=== PATIENT | female | born 1930 | race Caucasian/White ===

== ENCOUNTER → 2016-09-21 | Day surgery (SDC) | payer MEDICARE, OTHER ==
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
[~2016-09-21] VITALS: Ht 152.4 cm; Wt 49.7 kg
[~2016-09-21] MED LIST: ACET650T10 PR; AMOX500T PO; B12-1CHW CHEW; BIOT50005; BIOT50006 PO; CHLORHEXIDINE GLUCONATE 2 % 1 PACK (2 CLOTHS) TOPICAL PRN; CHOL1TAB42 PO; CITRTAB; CITRTAB7 PO; CLAR10CA3 PO; CYAN1KIT IM; DIAZ5 PO; DIAZ5TAB PO; DO NOT ADM ANY ANTICOAGULANT DRUGS PRN; FAMOTIDINE 20 MG/2 ML VIAL ONE; FOLI1TAB6 PO; INSULIN HUMAN REGULAR 1,000 UNITS/10 ML VIAL SQ PRN; LACTATED RINGER'S 1000 ML IV PRN; LIDOCAINE HCL 2% 50 ML VIAL ONE; LORA10TA7 PO; MECL-62 PO; MECL1TAB42 PO; METOPROLOL TARTRATE 25 MG TAB PO PRN; MIDAZOLAM HCL 2 MG/2 ML VIAL ONE; POVIDONE IODINE 5% (ANTISEPSIS KIT) 4 APPLICATIONS EACH NARE PRN; PROPOFOL 200 MG/20 ML AMP IV ONE; PROT40TA PO; RESP: ALBUTEROL 2.5 MG/3 ML NEB (PRN) NEB; ROSU10; ROSU10 PO; SODIUM CHLORID 0.9% 500 ML IV PRN; TYLE325T PO; VITA-136 PO; VITA200017 PO; VITA400C97; VIVE0.05 T-DERMAL
[2016-09-21 10:31] LABS: AUTOMATED NEUTROPHIL # 5.7 TH/MM3 (1.8-7.7); BASOPHIL # 0.1 TH/MM3 (0-0.2); BASOPHIL % 0.7 % (0.0-2.0); EOSINOPHIL # 0.5 TH/MM3 (0-0.4); EOSINOPHIL % 6.2 % (0.0-4.0); HEMATOCRIT 33.8 % (35.0-46.0); HEMO FLAGS DIFF FINAL; LYMPH % 14.3 % (9.0-44.0); LYMPHOCYTE # 1.2 TH/MM3 (1.0-4.8); MEAN CELL VOLUME 79.7 FL (80.0-100.0); MEAN CORPUSCULAR HEMOGLOBIN 26.2 PG (27.0-34.0); MEAN CORPUSCULAR HGB CONC 32.8 % (32.0-36.0); MONO % 10.7 % (0.0-8.0); NEUT % 68.1 % (16.0-70.0); PLATELET COUNT 260 TH/MM3 (150-450); RED BLOOD COUNT 4.24 MIL/MM3 (4.00-5.30); RED CELL DISTRIBUTION WIDTH 12.4 % (11.6-17.2); WHITE BLOOD COUNT 8.3 TH/MM3 (4.0-11.0)
[2016-09-21 10:38] LABS: APTT (PATIENT) 25.4 SEC (24.3-30.1); INTERNATIONAL NORMALIZED RATIO 0.9 RATIO; PROTHROMBIN TIME - PATIENT 10.1 SEC (9.8-11.6)
[2016-09-21 10:40] VITALS: BP 138/74; PULSE 76; RESP 20; TEMP 97.7; O2SAT 97
[2016-09-21 10:55] LABS: BICARBONATE 28.2 MEQ/L (21.0-32.0); POTASSIUM 4.3 MEQ/L (3.5-5.1)
--- NOTE | 2016-09-21 13:17 | RADRPT ---
EXAM DATE/TIME: 09/21/2016 12:40 [facility] COMPARISON: No previous studies available for comparison. [facility] INDICATIONS : Post bronchcospy. MEDICAL HISTORY : None. SURGICAL HISTORY : None. ENCOUNTER: Initial ACUITY: 1 day PAIN SCORE: 0/10 LOCATION: Bilateral chest FINDINGS: Large mass in the right midlung. No significant pneumothorax following bronchoscopy. Cardiomediastina l contours are within normal limits. Osseous structures are intact. CONCLUSION: 1. Large right midlung mass without evidence for pneumothorax following bronchoscopy. Brian Peterson MD on September 21, 2016 at 13:15 Board Certified Radiologist. This report was verified electronically.
--- NOTE | 2016-09-21 13:25 | MP ---
cc: ALEYDA MOYER M.D., JOHN DATE OF SURGERY 09/21/2016 PROCEDURE Fiberoptic bronchoscopy with biopsy, brushings and washings. PREOPERATIVE DIAGNOSIS Right middle lobe density. POSTOPERATIVE DIAGNOSIS Right middle lobe density. ANESTHESIA General with intubation. SURGEON Dr. Marisa Estrada PROCEDURE AND FINDINGS The patient was intubated under general anesthesia following which the Olympus IT-180 bronchoscope visualized the bronchi. The scope was advanced via the endotracheal tube into the trachea. The trachea and pete were normal. The scope was then advanced into the right mainstem and the right upper lobe segmental bronchi. These rhonchi demonstrated no gross endobronchial lesions. Next, the right middle lobe segmental bronchi were visualized. These bronchi demonstrated an irregular mucosal lesion in the right middle lobe bronchus which was friable to touch and brushings were done from here for cytology and biopsies were done from here as well. Mild bleeding was observed, controlled with saline washings. The scope was then advanced into the right lower lobe segmental bronchi. These bronchi demonstrated no endobronchial lesions. Saline washings were done. The scope was also advanced into the left mainstem and left upper lobe segmental bronchi. These bronchi demonstrated no gross endobronchial lesions. Next, the left lower lobe segmental bronchi were visualized and which demonstrated no gross endobronchial lesions. Saline washings were done and the procedure was then terminated. The patient tolerated the procedure well. Kwasi Estrada MD JROBERTA/PALLAVI /12:17 PM /1:25 PM
--- NOTE | 2016-09-21 13:58 | EKG ---
Date Performed: 09/21/2016 Time Performed: 09:56:49 PTAGE: 86 years EKG: Sinus rhythm POSSIBLE LEFT ATRIAL ENLARGEMENT BORDERLINE ECG NO PREVIOUS TRACING DOCTOR: Asher Mercedes Interpretating Date/Time 09/21/2016 13:58:06
[2016-09-21 14:15] VITALS: BP 149/69; PULSE 73; RESP 18; TEMP 97.5; O2SAT 96
== END | disposition home or self-care (01) ==
LOC: HSDC 09:09
DX: C34.2 Malignant neoplasm of middle lobe, bronchus or lung (principal); R53.83 Other fatigue; R42 Dizziness and giddiness; R49.0 Dysphonia; K21.9 Gastro-esophageal reflux disease without esophagitis; M54.9 Dorsalgia, unspecified; G89.29 Other chronic pain
CPT/HCPCS: 00520; 31625; 71010; 80048; 85025; 85610; 85730; 87015; 87070; 87102; 87116; 87205; 87206; 88112; 88305; 88341; 88342; 93005; J2250; J3010; J7120